=== PATIENT | female | born 1975 | race Caucasian/White ===

== ENCOUNTER 2019-01-05 12:41 | Emergency (ER) | payer OTHER ==
[~2019-01-05] VITALS: Ht 162.6 cm; Wt 65.3 kg
[2019-01-05] MEDS ORDERED: SYNTHROID100 MC1 PO (12:55)
[2019-01-05 14:52] VITALS: BP 130/78
== END 2019-01-05 14:53 | disposition home or self-care (01) ==
LOC: M.ERS 12:41
DX: S01.111A Laceration without foreign body of right eyelid and periocular area, initial encounter (principal); S90.811A Abrasion, right foot, initial encounter; Z88.1 Allergy status to other antibiotic agents; W00.0XXA Fall on same level due to ice and snow, initial encounter; Y93.89 Activity, other specified; Y92.89 Other specified places as the place of occurrence of the external cause; Y99.8 Other external cause status